=== PATIENT | female | born 1945 | race Caucasian/White ===

== ENCOUNTER → 2017-01-26 | Outpatient (CLI) | payer MEDICARE, BC | LOC: MC.RAD 10:31 | DX: Z12.31 Encounter for screening mammogram for malignant neoplasm of breast (principal); D24.2 Benign neoplasm of left breast; D24.1 Benign neoplasm of right breast ==

== ENCOUNTER 2017-09-02 10:55 | Emergency (ER) | payer MEDICARE, BC ==
[~2017-09-02] VITALS: Ht 172.7 cm; Wt 88.6 kg
[2017-09-02 10:56] VITALS: PULSE 79; TEMP 99
[2017-09-02] MEDS ORDERED: BACTROBAN15 GM TOP (11:34)
[2017-09-02] MEDS ORDERED: ELOCON0.11 TOP (11:35)
[2017-09-02] MEDS ORDERED: DENAVIR1% (11:35)
[2017-09-02] MEDS ORDERED: PHENERGAN25 MG RC (11:36)
[2017-09-02] MEDS ORDERED: BENTYL 10MG10 MG/CAP PO (11:37)
[2017-09-02 11:42] LABS: BASO # 0.1 (0.0-0.2); EOS # 0.1 (0.0-0.7); EOS % 1.8 % (0-4.0); GRAN # 3.5 (1.4-6.5); GRAN % 57.2 % (42.2-75.2); HEMATOCRIT 41.2 % (37.0-47.0); HEMOGLOBIN 13.4 g/dl (12.5-16.0); LYMPH % 33.2 % (20.0-51.0); MEAN CELL VOLUME 95 fl (80.0-100.0); MEAN CORPUSCULAR HEMOGLOBIN 31 pg (27.0-31.0); MEAN CORPUSCULAR HGB CONC 33 g/dl (33.0-37.0); MONO # 0.4 (0.1-0.6); MONO % 6.3 % (1.7-9.3); PLATELET COUNT 323 K/mm3 (130-400); RED BLOOD COUNT 4.34 M/mm3 (4.10-5.30); WHITE BLOOD COUNT 6.1 K/mm3 (4.8-10.8)
[2017-09-02 11:44] LABS: PROTHROMBIN TIME 11.3 SECONDS (9.7-12.8)
[2017-09-02 11:57] LABS: ADJUSTED CALCIUM 9.4 mg/dL (8.4-10.2); ALANINE AMINOTRANSFERASE 26 U/L (9-52); ALBUMIN 4.1 gm/dL (3.5-5.0); ALKALINE PHOSPHATASE 70 U/L (50-136); ANION GAP 9 mmol/L (7-16); BILIRUBIN,TOTAL 0.6 mg/dL (0.0-1.0); BLOOD UREA NITROGEN 14 mg/dL (7-17); CALCIUM 9.5 mg/dL (8.4-10.2); CARBON DIOXIDE 26 mmol/L (22-30); CHLORIDE 107 mmol/L (98-107); CREATININE, serum 0.76 mg/dL (0.52-1.25); GLUCOSE 105 mg/dL (74-106); POTASSIUM 3.8 mmol/L (3.4-5.0); SODIUM 142 mmol/L (137-145); TOTAL PROTEIN 7.3 gm/dL (6.4-8.2)
[2017-09-02 11:58] LABS: C-REACTIVE PROTEIN < 0.5 mg/dL (0.0-0.9)
[2017-09-02 13:06] VITALS: BP 149/88
== END 2017-09-02 13:13 | disposition home or self-care (01) ==
LOC: COL.ER 10:55
PROVIDERS: Family Medicine
DX: G51.0 Bell's palsy (principal)

== ENCOUNTER 2017-10-08 17:19 | Emergency (ER) | payer MEDICARE, BC ==
[~2017-10-08] VITALS: Ht 172.7 cm; Wt 88.6 kg
[~2017-10-08 17:19] MED LIST: BACTROBAN15 GM TOP; BENTYL 10MG10 MG/CAP PO; DENAVIR1%; ELOCON0.11 TOP; PHENERGAN25 MG RC
[2017-10-08 17:24] VITALS: BP 190/91; TEMP 98.5
[2017-10-08 18:18] VITALS: PULSE 67
== END 2017-10-08 18:18 | disposition home or self-care (01) ==
LOC: COL.ER 17:19
DX: T63.301A Toxic effect of unspecified spider venom, accidental (unintentional), initial encounter (principal); Z87.891 Personal history of nicotine dependence; Z90.710 Acquired absence of both cervix and uterus

== ENCOUNTER → 2018-02-08 | Outpatient (CLI) | payer MEDICARE, BC | LOC: MC.RAD 01-27 13:00 | DX: Z12.31 Encounter for screening mammogram for malignant neoplasm of breast (principal) ==

== ENCOUNTER → 2019-04-25 | Outpatient (CLI) | payer MEDICARE, BC | LOC: MC.RAD 14:41 | DX: Z12.31 Encounter for screening mammogram for malignant neoplasm of breast (principal) ==

== ENCOUNTER → 2022-08-20 | Outpatient (CLI) | payer MEDICARE, BC | LOC: MC.RAD 13:59 | DX: Z12.31 Encounter for screening mammogram for malignant neoplasm of breast (principal) ==

== ENCOUNTER 2023-03-22 09:05 | Observation (INO) | payer MEDICARE, BC ==
[~2023-03-22] VITALS: Ht 172.7 cm; Wt 78.5 kg
[~2023-03-22 09:05] MED LIST changes: +ALDACTONE 25MG25 M1 PO; +ASPIRIN E.C. 8181 MG PO; +CORDARONE200 MG/TAB PO; +COZAAR 25MG25 MG/TAB PO; +ELIQUIS 5MG PO; +LANOXIN 0.25M0.25 MG PO; +LASIX 20MG TABL20 MG PO; +PAXIL 20MG20 MG PO; +PREDNISONE20 MG PO; +TOPROL XL 25MG25 MG PO; +XARELTO20 MG PO
[2023-03-22 09:40] LABS: BASO # 0.1 K/mm3 (0.0-0.2); BASO % 1.2 % (0.0-2.0); EOS # 0.2 K/mm3 (0.0-0.7); EOS % 2.3 % (0.0-4.0); GRAN # 4.6 K/mm3 (1.4-6.5); GRAN % 54.6 % (42.2-75.2); LYMPH # 2.8 K/mm3 (1.2-3.4); LYMPH % 33.6 % (20.0-51.0); MEAN CELL VOLUME 98 fl (80.0-100.0); MEAN CORPUSCULAR HEMOGLOBIN 32 pg (27-31); MEAN CORPUSCULAR HGB CONC 33 g/dl (33.0-37.0); MEAN PLATELET VOLUME 10.2 fl (7.4-10.4); MONO # 0.7 K/mm3 (0.1-0.6); MONO % 7.9 % (1.7-9.3); PLATELET COUNT 386 K/mm3 (130-400); RED BLOOD COUNT 3.72 M/mm3 (4.10-5.30); REDCELL DISTRIBUTION WIDTH-CV 12.3 % (11.5-14.5)
[2023-03-22 09:44] LABS: ALBUMIN 3.5 gm/dL (3.4-4.8); BILIRUBIN,TOTAL 0.3 mg/dL (0.2-1.2); CALCIUM 9.5 mg/dL (8.4-10.2); CREATININE, serum 0.99 mg/dL (0.57-1.11); HEMATOCRIT 36.5 % (37.0-47.0); POTASSIUM 4.2 mmol/L (3.5-4.5); TOTAL PROTEIN 6.5 gm/dL (6.2-8.1)
[2023-03-22 09:50] LABS: TROPONIN-I 0.024 ng/mL (0.00-0.033)
--- NOTE | 2023-03-22 11:22 | NUR ---
REPORT RECEIVED FROM LUCRECIA MARTI IN ED. AURELIO DON WITH CARDIOLOGY NOTIFIED OF CONSULT. PER FLORENCIA, OKAY TO LEAVE CARDIMEHNAZ DRIP OFF AT THIS TIME, WILL RECEIVE NEW ORDERS SOON.
[2023-03-22 11:50] VITALS: BP 119/75; PULSE 59; TEMP 98.3
[2023-03-22 13:00] VITALS: BP_SYST 119
--- NOTE | 2023-03-22 13:00 | NUR ---
PATIENT ADMITTED TO ROOM 351 FROM ER. PATIENT IS ALERT AND ORIENTED X4. DENIES PAIN. LUNGS CTA. ANXIOUS, WHICH IS BASELINE PER PATIENT. SR ON EKG AND TELE. VITAL SIGNS STABLE. ORIENTED TO ROOM AND USE OF CALL LIGHT. DENIES NEEDS AT THIS TIME.
[2023-03-22 13:20] LABS: TSH w REFLEX 2.468 uIU/mL (0.350-4.940)
[2023-03-22 15:20] VITALS: BP 102/53; PULSE 63; TEMP 97.9
[2023-03-22] MEDS ORDERED: CORDARONE200 MG/TAB PO (15:59)
[2023-03-22 17:00] VITALS: BP_SYST 102
--- NOTE | 2023-03-22 17:44 | NUR ---
PATIENT DISCHARGED PER ORDER. IV REMOVED WITH CATH INTACT, MINIMAL BLEEDING NOTED, PRESSURE APPLIED UNTIL HEMOSTASIS ACHEIVED, GAUZE DRESSING APPLIED. TELE REMOVED AND RETURNED TO CRITICAL CARE. DISCHARGE TEACHING PROVIDED ON MEDICATIONS, DIAGNOSIS, AND FOLLOW UPS. DENIES FURTHER NEEDS OR CONCERNS. ESCORTED OUT BY THIS RN.
== END 2023-03-22 17:45 | disposition home or self-care (01) ==
LOC: COL.ER 09:05 → MEDICAL 10:02
PROVIDERS: Emergency Medicine; Physician Assistant; ADMIT Internal Medicine
DX: I48.91 Unspecified atrial fibrillation (principal); I11.0 Hypertensive heart disease with heart failure; I50.22 Chronic systolic (congestive) heart failure; J44.9 Chronic obstructive pulmonary disease, unspecified; E78.5 Hyperlipidemia, unspecified; C44.91 Basal cell carcinoma of skin, unspecified; K64.8 Other hemorrhoids; I34.0 Nonrheumatic mitral (valve) insufficiency; F41.9 Anxiety disorder, unspecified; F32.A Depression, unspecified; Z79.01 Long term (current) use of anticoagulants; Z79.899 Other long term (current) drug therapy; Z87.891 Personal history of nicotine dependence
CPT/HCPCS: G0378; J7030